=== PATIENT | female | born 1985 | race Caucasian/White ===

== ENCOUNTER 2018-11-27 08:57 | Day surgery (SDC) | payer OTHER ==
[~2018-11-27 08:57] MED LIST: CEFAZOLIN 1 GM INJ; EPHEDrine 25 MG/5 ML SYG; FENTAnyl 50 MCG/ML VIAL; MIDAZOLAM 1 MG/ML 2 ML INJ; PROPOFOL 200 MG INJ; ROCURONIUM 50 MG INJ; SEVOFLURANE 15 MIN
[2018-11-27] MEDS ORDERED: FENTAnyl 50 MCG/ML VIAL IV ×3 (10:30)
[2018-11-27] MEDS ORDERED: EPHEDrine SULFATE 50 MG/5 ML SYG IV (10:30)
[2018-11-27] MEDS ORDERED: DIPHENHYDRAMINE 50 MG INJ IV (10:30)
[2018-11-27] MEDS ORDERED: METOCLOPRAMIDE 10 MG INJ IV (10:30)
[2018-11-27] MEDS ORDERED: LABETALOL HCL 20MG INJ IV (10:30)
[2018-11-27] MEDS ORDERED: HYDROmorphONE 1 MG/5 ML IV SYRINGE IV ×3 (10:30→13:33)
[2018-11-27] MEDS ORDERED: MEPERIDINE 25 MG INJ IV (10:30)
[2018-11-27] MEDS ORDERED: INDOMETHACIN 50 MG SUPP PR (10:52)
[2018-11-27] MEDS ORDERED: IOHEXOL 300MG/ML 30 ML BTL (10:55)
[2018-11-27] MEDS ORDERED: DEXAMETHASONE 4 MG/ML 5 ML INJ (11:57)
[2018-11-27] MEDS ORDERED: KETOROLAC 30 MG INJ (11:57)
[2018-11-27] MEDS ORDERED: METOCLOPRAMIDE 10 MG INJ (11:57)
[2018-11-27] MEDS ORDERED: ONDANSETRON 4 MG INJ ×2 (11:57→13:32)
[2018-11-27] MEDS ORDERED: SUGAMMADEX SODIUM 200 MG/2 ML VIAL IV (13:00)
[2018-11-27] MEDS: HYDROmorphONE 1 MG/5 ML IV SYRINGE IV (13:33)
[2018-11-27] MEDS: ONDANSETRON 4 MG INJ IV (13:34)
== END 2018-11-27 15:10 | disposition home or self-care (01) ==
LOC: GIL 08:57 → SDS 08:57 → GIL 15:10
DX: K80.50 Calculus of bile duct without cholangitis or cholecystitis without obstruction (principal); Z46.59 Encounter for fitting and adjustment of other gastrointestinal appliance and device
CPT/HCPCS: 43264; 74330

== ENCOUNTER 2018-11-28 20:01 | Observation (INO) | payer OTHER ==
[~2018-11-28 20:01] MED LIST changes: -EPHEDrine 25 MG/5 ML SYG; +PROPOFOL 20 ML; -PROPOFOL 200 MG INJ; -SEVOFLURANE 15 MIN
[2018-11-28] MEDS: morphine 2 MG INJ IV (23:54)
[2018-11-28] MEDS: ONDANSETRON 4 MG INJ IV (23:54)
[2018-11-28 23:58] LABS: URINE BLOOD (Dip) POC Negative (NEGATIVE); URINE GLUCOSE (Dip) POC Negative (NEGATIVE); URINE KETONES (Dip) POC Negative (NEGATIVE); URINE LEUKOCYTE EST (Dip) POC Negative (NEGATIVE); URINE NITRITE (Dip) POC Negative (NEGATIVE); URINE TOTAL PROTEIN POC Negative (NEGATIVE)
[2018-11-28 23:58] LABS: URINE PH (Dip) POC 8.5 (5.0-8.5)
[2018-11-28] MEDS: SOD CHLORIDE 0.9% 100 ML IV (23:59)
[2018-11-29 00:03] LABS: ADD MAN DIFF? NO
[2018-11-29 00:08] LABS: BASOPHILS % 0.3 % (0.0-2.0); EOSINOPHILS % 0.3 % (0.0-7.0); HEMATOCRIT 34.2 % (37.0-47.0); HEMOGLOBIN 11.1 g/dl (12.0-16.0); LYMPHOCYTES # 2.7 10^3/ul (0.8-2.9); LYMPHOCYTES % 28.7 % (15.0-51.0); MEAN CORPUSCULAR HEMOGLOBIN 29.6 pg (29.0-33.0); MEAN CORPUSCULAR HGB CONC 32.5 g/dl (32.0-37.0); MEAN CORPUSCULAR VOLUME 91.2 fl (82.0-101.0); MONOCYTE # 0.7 10^3/ul (0.3-0.9); MONOCYTES % 7.7 % (0.0-11.0); NEUTROPHIL # 5.9 10^3/ul (1.6-7.5); NEUTROPHILS % 62.8 % (39.0-77.0); PLATELET COUNT 208 10^3/UL (140-415); RED BLOOD COUNT 3.75 10^6/ul (4.20-5.40); RED CELL DISTRIBUTION WIDTH 13.9 % (11.5-14.5)
[2018-11-29 00:08] LABS: WHITE BLOOD COUNT 9.4 10^3/ul (4.8-10.8)
[2018-11-29 00:17] LABS: ADD UMIC NO; UR ASCORBIC ACID NEGATIVE (NEGATIVE); UR BILIRUBIN (Dip) NEGATIVE (NEGATIVE); UR BLOOD (Dip) NEGATIVE (NEGATIVE); UR CLARITY SLIGHTLY CLOUDY (CLEAR); UR COLOR YELLOW (YELLOW); UR GLUCOSE (Dip) NEGATIVE (NEGATIVE); UR KETONES (Dip) NEGATIVE (NEGATIVE); UR LEUKOCYTE ESTERASE (Dip) NEGATIVE Leu/ul (NEGATIVE); UR NITRITE (Dip) NEGATIVE (NEGATIVE); UR RBC 0 /HPF (0-5); UR SPECIFIC GRAVITY (Dip) 1.011 (1.003-1.030); UR SQUAMOUS EPITHELIAL CELL FEW /HPF (FEW); UR TOTAL PROTEIN (Dip) NEGATIVE (NEGATIVE); UR UROBILINOGEN (Dip) NEGATIVE (NEGATIVE); UR WBC 0 /HPF (0-5)
[2018-11-29 00:30] LABS: ALANINE AMINOTRANSFERASE 42 IU/L (13-69); ALBUMIN 4.1 g/dl (3.3-4.9); ALBUMIN/GLOBULIN RATIO 1.41; ALKALINE PHOSPHATASE 57 IU/L (42-121); ANION GAP 9 (5-13); ASPARTATE AMINO TRANSFERASE 29 IU/L (15-46); BILIRUBIN,INDIRECT 0.5 mg/dl (0-1.1); BILIRUBIN,TOTAL 0.5 mg/dl (0.2-1.3); BLOOD UREA NITROGEN 10 mg/dl (7-20); CALCIUM 9.6 mg/dl (8.4-10.2); CARBON DIOXIDE 29 mmol/L (21-31); CHLORIDE 102 mmol/L (97-110); Estimated GFR > 60 mL/min (>60); GLUCOSE 90 mg/dl (70-220); LIPASE 140 U/L (23-300); POTASSIUM 3.8 mmol/L (3.5-5.1); SODIUM 140 mmol/L (135-144)
[2018-11-29 00:39] LABS: LACTIC ACID 2.3 mmol/L (0.5-2.0)
[2018-11-29] MEDS: KETOROLAC 30 MG INJ IV (01:35)
[2018-11-29] MEDS: morphine 2 MG INJ IV (01:42)
[2018-11-29] MEDS: SOD CHLORIDE 0.9% 1,000 ML IV ×3 (04:03→23:41)
[2018-11-29] MEDS ORDERED: NACL 0.9% 3 ML SYG IV (04:30)
[2018-11-29] MEDS ORDERED: DOCUSATE SODIUM 100 MG CAP PO (04:30)
[2018-11-29] MEDS ORDERED: ENALAPRILAT 1.25 MG INJ IV (04:30)
[2018-11-29] MEDS ORDERED: BISACODYL (EC) 5 MG TAB PO (04:30)
[2018-11-29] MEDS: HYDROmorphONE 0.5 MG/0.5 ML SYG IV ×3 (05:03→22:19)
[2018-11-29] MEDS: ONDANSETRON 4 MG INJ IV ×2 (05:03→17:43)
[2018-11-29 05:40] LABS: ADD MAN DIFF? NO
[2018-11-29 05:47] LABS: BASOPHILS % 0.3 % (0.0-2.0); EOSINOPHILS # 0.1 10^3/ul (0.0-0.5); EOSINOPHILS % 0.8 % (0.0-7.0); HEMATOCRIT 31.2 % (37.0-47.0); HEMOGLOBIN 10.2 g/dl (12.0-16.0); LYMPHOCYTES # 2.3 10^3/ul (0.8-2.9); LYMPHOCYTES % 35.8 % (15.0-51.0); MEAN CORPUSCULAR HEMOGLOBIN 30.1 pg (29.0-33.0); MEAN CORPUSCULAR HGB CONC 32.7 g/dl (32.0-37.0); MEAN PLATELET VOLUME 11.9 fl (7.4-10.4); MONOCYTE # 0.5 10^3/ul (0.3-0.9); MONOCYTES % 7.9 % (0.0-11.0); NEUTROPHIL # 3.5 10^3/ul (1.6-7.5); PLATELET COUNT 183 10^3/UL (140-415); RED BLOOD COUNT 3.39 10^6/ul (4.20-5.40); RED CELL DISTRIBUTION WIDTH 14.1 % (11.5-14.5)
[2018-11-29 05:47] LABS: WHITE BLOOD COUNT 6.3 10^3/ul (4.8-10.8)
[2018-11-29 06:27] LABS: LACTIC ACID 1.5 mmol/L (0.5-2.0)
[2018-11-29 06:46] LABS: ALANINE AMINOTRANSFERASE 34 IU/L (13-69); ALBUMIN 3.4 g/dl (3.3-4.9); ALBUMIN/GLOBULIN RATIO 1.41; ALKALINE PHOSPHATASE 49 IU/L (42-121); ANION GAP 8 (5-13); ASPARTATE AMINO TRANSFERASE 25 IU/L (15-46); BILIRUBIN,INDIRECT 0.6 mg/dl (0-1.1); BILIRUBIN,TOTAL 0.6 mg/dl (0.2-1.3); BLOOD UREA NITROGEN 9 mg/dl (7-20); CARBON DIOXIDE 29 mmol/L (21-31); CHLORIDE 105 mmol/L (97-110); CHOL/HDL RATIO 2.3 RATIO; CHOLESTEROL 131 mg/dl (100-200); CREATININE 0.56 mg/dl (0.44-1.00); Estimated GFR > 60 mL/min (>60); GLUCOSE 83 mg/dl (70-220); HDL CHOLESTEROL 55 mg/dl (34-82); LDL CHOLESTEROL,CALCULATED 57 mg/dl; POTASSIUM 3.8 mmol/L (3.5-5.1); SODIUM 142 mmol/L (135-144); TOTAL PROTEIN 5.8 g/dl (6.1-8.1); TRIGLYCERIDES 95 mg/dl (0-149)
[2018-11-29 07:13] LABS: HEMOGLOBIN A1C 4.9 % (0-5.9)
[2018-11-29] MEDS: PANTOPRAZOLE (EC) 40 MG TAB PO (09:54)
[2018-11-29] MEDS: SUCRALFATE 1 GM TAB PO ×4 (09:54→21:06)
[2018-11-30] MEDS: ONDANSETRON 4 MG INJ IV (04:51)
[2018-11-30] MEDS: ACETAMINOPHEN 325 MG TAB PO ×2 (04:51→12:13)
[2018-11-30] MEDS: PANTOPRAZOLE (EC) 40 MG TAB PO (04:55)
[2018-11-30 05:00] LABS: ADD MAN DIFF? NO
[2018-11-30 05:01] LABS: BASOPHILS % 0.6 % (0.0-2.0); EOSINOPHILS # 0.2 10^3/ul (0.0-0.5); EOSINOPHILS % 3.1 % (0.0-7.0); HEMATOCRIT 32.7 % (37.0-47.0); HEMOGLOBIN 10.5 g/dl (12.0-16.0); LYMPHOCYTES # 2.5 10^3/ul (0.8-2.9); LYMPHOCYTES % 49.8 % (15.0-51.0); MEAN CORPUSCULAR HGB CONC 32.1 g/dl (32.0-37.0); MEAN CORPUSCULAR VOLUME 93.4 fl (82.0-101.0); MEAN PLATELET VOLUME 11.3 fl (7.4-10.4); MONOCYTE # 0.4 10^3/ul (0.3-0.9); MONOCYTES % 8.2 % (0.0-11.0); NEUTROPHIL # 1.9 10^3/ul (1.6-7.5); NEUTROPHILS % 38.1 % (39.0-77.0); PLATELET COUNT 170 10^3/UL (140-415); RED CELL DISTRIBUTION WIDTH 14.1 % (11.5-14.5)
[2018-11-30 05:01] LABS: WHITE BLOOD COUNT 5.1 10^3/ul (4.8-10.8)
[2018-11-30] MEDS: HYDROmorphONE 0.5 MG/0.5 ML SYG IV ×2 (05:34→20:23)
[2018-11-30 05:38] LABS: ALANINE AMINOTRANSFERASE 31 IU/L (13-69); ALBUMIN 3.5 g/dl (3.3-4.9); ALBUMIN/GLOBULIN RATIO 1.29; ALKALINE PHOSPHATASE 50 IU/L (42-121); ANION GAP 9 (5-13); ASPARTATE AMINO TRANSFERASE 20 IU/L (15-46); BILIRUBIN,INDIRECT 0.8 mg/dl (0-1.1); BILIRUBIN,TOTAL 0.8 mg/dl (0.2-1.3); BLOOD UREA NITROGEN 8 mg/dl (7-20); CALCIUM 8.8 mg/dl (8.4-10.2); CARBON DIOXIDE 28 mmol/L (21-31); CHLORIDE 102 mmol/L (97-110); CREATININE 0.61 mg/dl (0.44-1.00); Estimated GFR > 60 mL/min (>60); GLUCOSE 83 mg/dl (70-220); POTASSIUM 3.9 mmol/L (3.5-5.1); SODIUM 139 mmol/L (135-144); TOTAL PROTEIN 6.2 g/dl (6.1-8.1)
[2018-11-30] MEDS: SUCRALFATE 1 GM TAB PO ×4 (07:51→20:03)
[2018-11-30] MEDS: SOD CHLORIDE 0.9% 1,000 ML IV ×2 (10:33→20:23)
[2018-12-01] MEDS: HYDROmorphONE 0.5 MG/0.5 ML SYG IV (01:54)
[2018-12-01] MEDS: PANTOPRAZOLE (EC) 40 MG TAB PO (05:17)
[2018-12-01] MEDS: SOD CHLORIDE 0.9% 1,000 ML IV (05:18)
[2018-12-01 06:06] LABS: ADD MAN DIFF? NO
[2018-12-01 06:17] LABS: WHITE BLOOD COUNT 4.8 10^3/ul (4.8-10.8)
[2018-12-01 06:17] LABS: BASOPHILS % 0.4 % (0.0-2.0); EOSINOPHILS # 0.2 10^3/ul (0.0-0.5); HEMATOCRIT 31.7 % (37.0-47.0); HEMOGLOBIN 10.3 g/dl (12.0-16.0); LYMPHOCYTES # 2.2 10^3/ul (0.8-2.9); LYMPHOCYTES % 45.4 % (15.0-51.0); MEAN CORPUSCULAR HGB CONC 32.5 g/dl (32.0-37.0); MEAN CORPUSCULAR VOLUME 92.4 fl (82.0-101.0); MONOCYTE # 0.4 10^3/ul (0.3-0.9); MONOCYTES % 8.4 % (0.0-11.0); NEUTROPHIL # 1.9 10^3/ul (1.6-7.5); NEUTROPHILS % 40.6 % (39.0-77.0); PLATELET COUNT 172 10^3/UL (140-415); RED BLOOD COUNT 3.43 10^6/ul (4.20-5.40); RED CELL DISTRIBUTION WIDTH 13.6 % (11.5-14.5)
[2018-12-01 06:42] LABS: ALANINE AMINOTRANSFERASE 32 IU/L (13-69); ALBUMIN 3.2 g/dl (3.3-4.9); ALBUMIN/GLOBULIN RATIO 1.14; ALKALINE PHOSPHATASE 49 IU/L (42-121); ANION GAP 7 (5-13); ASPARTATE AMINO TRANSFERASE 23 IU/L (15-46); BILIRUBIN,INDIRECT 0.7 mg/dl (0-1.1); BILIRUBIN,TOTAL 0.7 mg/dl (0.2-1.3); BLOOD UREA NITROGEN 5 mg/dl (7-20); CALCIUM 8.9 mg/dl (8.4-10.2); CARBON DIOXIDE 26 mmol/L (21-31); CHLORIDE 106 mmol/L (97-110); CREATININE 0.53 mg/dl (0.44-1.00); Estimated GFR > 60 mL/min (>60); GLUCOSE 89 mg/dl (70-220); POTASSIUM 3.6 mmol/L (3.5-5.1); SODIUM 139 mmol/L (135-144)
[2018-12-01] MEDS: SUCRALFATE 1 GM TAB PO (08:00)
== END 2018-12-01 11:33 | disposition home or self-care (01) ==
LOC: FTE 20:01 → 2NE 11-29 04:03
PROVIDERS: Family Medicine
DX: K80.50 Calculus of bile duct without cholangitis or cholecystitis without obstruction (principal)
CPT/HCPCS: 36415; 74176; 80053; 80061; 81001; 81003; 81025; 83036; 83605; 83690; 83735; 84443; 85025; 87040-91; 96374; 96375; 96376; 99285-25

== ENCOUNTER 2018-12-19 12:12 | Day surgery (SDC) | payer OTHER ==
[2018-12-19] MEDS ORDERED: INDOMETHACIN 50 MG SUPP PR (14:30)
[2018-12-19] MEDS ORDERED: IOHEXOL 300MG/ML 30 ML BTL (14:49)
[2018-12-19] MEDS ORDERED: GLYCOPYRROLATE 0.4 MG INJ (15:13)
[2018-12-19] MEDS ORDERED: NEOSTIGMINE 3 MG/3 ML SYRINGE (15:13)
[2018-12-19] MEDS ORDERED: PROPOFOL 20 ML (15:13)
[2018-12-19] MEDS ORDERED: ROCURONIUM 50 MG INJ (15:13)
[2018-12-19] MEDS ORDERED: MIDAZOLAM 1 MG/ML 2 ML INJ (15:14)
[2018-12-19] MEDS ORDERED: PHENYLephrine (100 MCG/ML) 10ML SYG (16:01)
[2018-12-19] MEDS: HYDROmorphONE 1 MG/5 ML IV SYRINGE IV ×5 (17:46→18:07)
[2018-12-19] MEDS: ONDANSETRON 4 MG INJ IV ×2 (17:46→18:48)
== END 2018-12-19 19:50 | disposition home or self-care (01) ==
LOC: GIL 12:12
DX: K80.50 Calculus of bile duct without cholangitis or cholecystitis without obstruction (principal)
CPT/HCPCS: 43264; 74330

== ENCOUNTER 2019-03-25 00:22 | Emergency (ER) | payer OTHER ==
[2019-03-25 01:20] LABS: ADD MAN DIFF? NO
[2019-03-25] MEDS: SOD CHLORIDE 0.9% 1,000 ML IV (01:20)
[2019-03-25] MEDS: morphine 2 MG INJ IV (01:20)
[2019-03-25] MEDS: DICYCLOMINE 10 MG CAP PO (01:20)
[2019-03-25] MEDS: FAMOTIDINE 20 MG INJ IV (01:20)
[2019-03-25] MEDS: LIDOCAINE/MYLANTA 40 ML BTL PO (01:20)
[2019-03-25] MEDS: ONDANSETRON 4 MG INJ IV (01:20)
[2019-03-25 01:22] LABS: BASOPHILS % 0.6 % (0.0-2.0); EOSINOPHILS # 0.1 10^3/ul (0.0-0.5); EOSINOPHILS % 1.5 % (0.0-7.0); HEMOGLOBIN 11.2 g/dl (12.0-16.0); LYMPHOCYTES # 1.9 10^3/ul (0.8-2.9); LYMPHOCYTES % 36.7 % (15.0-51.0); MEAN CORPUSCULAR HEMOGLOBIN 29.6 pg (29.0-33.0); MEAN CORPUSCULAR VOLUME 92.3 fl (82.0-101.0); MONOCYTE # 0.5 10^3/ul (0.3-0.9); MONOCYTES % 10.4 % (0.0-11.0); NEUTROPHIL # 2.6 10^3/ul (1.6-7.5); NEUTROPHILS % 50.6 % (39.0-77.0); PLATELET COUNT 219 10^3/UL (140-415); RED BLOOD COUNT 3.79 10^6/ul (4.20-5.40); RED CELL DISTRIBUTION WIDTH 14.7 % (11.5-14.5)
[2019-03-25 01:22] LABS: WHITE BLOOD COUNT 5.2 10^3/ul (4.8-10.8)
[2019-03-25 01:36] LABS: ADD UMIC NO; UR ASCORBIC ACID NEGATIVE (NEGATIVE); UR BACTERIA FEW /HPF (NONE SEEN); UR BILIRUBIN (Dip) NEGATIVE (NEGATIVE); UR BLOOD (Dip) NEGATIVE (NEGATIVE); UR CLARITY SLIGHTLY CLOUDY (CLEAR); UR COLOR STRAW (YELLOW); UR GLUCOSE (Dip) NEGATIVE (NEGATIVE); UR KETONES (Dip) NEGATIVE (NEGATIVE); UR LEUKOCYTE ESTERASE (Dip) NEGATIVE Leu/ul (NEGATIVE); UR NITRITE (Dip) NEGATIVE (NEGATIVE); UR RBC 0 /HPF (0-5); UR SPECIFIC GRAVITY (Dip) 1.005 (1.003-1.030); UR SQUAMOUS EPITHELIAL CELL MODERATE /HPF (FEW); UR TOTAL PROTEIN (Dip) NEGATIVE (NEGATIVE); UR UROBILINOGEN (Dip) NEGATIVE (NEGATIVE); UR WBC 1 /HPF (0-5)
[2019-03-25 01:48] LABS: ALANINE AMINOTRANSFERASE 29 IU/L (13-69); ALBUMIN 4.2 g/dl (3.3-4.9); ALBUMIN/GLOBULIN RATIO 1.31; ALKALINE PHOSPHATASE 47 IU/L (42-121); ANION GAP 8 (5-13); ASPARTATE AMINO TRANSFERASE 42 IU/L (15-46); BILIRUBIN,INDIRECT 0.7 mg/dl (0-1.1); BILIRUBIN,TOTAL 0.7 mg/dl (0.2-1.3); BLOOD UREA NITROGEN 17 mg/dl (7-20); CALCIUM 9.6 mg/dl (8.4-10.2); CARBON DIOXIDE 29 mmol/L (21-31); CHLORIDE 102 mmol/L (97-110); Estimated GFR > 60 mL/min (>60); GLUCOSE 84 mg/dl (70-220); LIPASE 219 U/L (23-300); SODIUM 139 mmol/L (135-144); TOTAL PROTEIN 7.4 g/dl (6.1-8.1)
== END 2019-03-25 02:35 | disposition home or self-care (01) ==
LOC: FTE 00:22
DX: R10.84 Generalized abdominal pain (principal); R11.2 Nausea with vomiting, unspecified
CPT/HCPCS: 36415; 80053; 81001; 81003; 81025; 83690; 84702; 85025; 96374; 96375; 99284-25

== ENCOUNTER 2019-04-24 19:49 | Emergency (ER) | payer OTHER ==
[2019-04-24 22:01] LABS: ADD MAN DIFF? NO
[2019-04-24 22:03] LABS: WHITE BLOOD COUNT 5.7 10^3/ul (4.8-10.8)
[2019-04-24 22:03] LABS: BASOPHILS % 0.4 % (0.0-2.0); EOSINOPHILS % 0.4 % (0.0-7.0); HEMATOCRIT 34.8 % (37.0-47.0); HEMOGLOBIN 11.4 g/dl (12.0-16.0); LYMPHOCYTES # 1.3 10^3/ul (0.8-2.9); LYMPHOCYTES % 22.6 % (15.0-51.0); MEAN CORPUSCULAR HEMOGLOBIN 30.1 pg (29.0-33.0); MEAN CORPUSCULAR HGB CONC 32.8 g/dl (32.0-37.0); MEAN CORPUSCULAR VOLUME 91.8 fl (82.0-101.0); MEAN PLATELET VOLUME 11.6 fl (7.4-10.4); MONOCYTE # 0.6 10^3/ul (0.3-0.9); MONOCYTES % 11.2 % (0.0-11.0); NEUTROPHIL # 3.7 10^3/ul (1.6-7.5); PLATELET COUNT 184 10^3/UL (140-415); RED BLOOD COUNT 3.79 10^6/ul (4.20-5.40); RED CELL DISTRIBUTION WIDTH 14.2 % (11.5-14.5)
[2019-04-24] MEDS: FAMOTIDINE 20 MG INJ IV (22:06)
[2019-04-24 22:10] LABS: ADD UMIC NO; UR ASCORBIC ACID NEGATIVE (NEGATIVE); UR BACTERIA FEW /HPF (NONE SEEN); UR BILIRUBIN (Dip) NEGATIVE (NEGATIVE); UR BLOOD (Dip) NEGATIVE (NEGATIVE); UR CLARITY SLIGHTLY CLOUDY (CLEAR); UR COLOR STRAW (YELLOW); UR GLUCOSE (Dip) NEGATIVE (NEGATIVE); UR KETONES (Dip) NEGATIVE (NEGATIVE); UR LEUKOCYTE ESTERASE (Dip) NEGATIVE Leu/ul (NEGATIVE); UR NITRITE (Dip) NEGATIVE (NEGATIVE); UR RBC 0 /HPF (0-5); UR SPECIFIC GRAVITY (Dip) 1.008 (1.003-1.030); UR SQUAMOUS EPITHELIAL CELL FEW /HPF (FEW); UR TOTAL PROTEIN (Dip) NEGATIVE (NEGATIVE); UR UROBILINOGEN (Dip) NEGATIVE (NEGATIVE); UR WBC 0 /HPF (0-5)
[2019-04-24 22:26] LABS: ALANINE AMINOTRANSFERASE 30 IU/L (13-69); ALBUMIN/GLOBULIN RATIO 1.17; ALKALINE PHOSPHATASE 72 IU/L (42-121); ANION GAP 7 (5-13); ASPARTATE AMINO TRANSFERASE 27 IU/L (15-46); BILIRUBIN,INDIRECT 0.8 mg/dl (0-1.1); BILIRUBIN,TOTAL 0.8 mg/dl (0.2-1.3); BLOOD UREA NITROGEN 4 mg/dl (7-20); CARBON DIOXIDE 25 mmol/L (21-31); CHLORIDE 106 mmol/L (97-110); CREATININE 0.53 mg/dl (0.44-1.00); Estimated GFR > 60 mL/min (>60); GLUCOSE 90 mg/dl (70-220); LIPASE 85 U/L (23-300); POTASSIUM 3.7 mmol/L (3.5-5.1); SODIUM 138 mmol/L (135-144); TOTAL PROTEIN 7.4 g/dl (6.1-8.1)
[2019-04-24 22:29] LABS: MONOTEST Positive (NEG)
[2019-04-24] MEDS: ACETAMINOPHEN 500 MG TAB PO (22:31)
== END 2019-04-24 23:27 | disposition home or self-care (01) ==
LOC: FTE 19:49
DX: R10.13 Epigastric pain (principal)
CPT/HCPCS: 36415; 80053; 81001; 81003; 81025; 83690; 84443; 85025; 86308; 93005; 96374; 99284-25